=== PATIENT | male | born 1965 | race Caucasian/White ===

== ENCOUNTER 2023-11-13 14:31 | Emergency (ER) | payer OTHER ==
[~2023-11-13] VITALS: Ht 175.3 cm; Wt 94.8 kg
[2023-11-13 14:31] VITALS: BP 110/76; PULSE 92; RESP 18; TEMP 98.1; O2SAT 98
[2023-11-13 15:43] LABS: BASOPHILS # (AUTO) 0.1 K/uL (0.00-0.22); BASOPHILS % (AUTO) 1.3 % (0.0-2.0); EOSINOPHILS # (AUTO) 0.1 K/uL (0-0.4); EOSINOPHILS % (AUTO) 2.8 % (0.0-4.0); HEMATOCRIT 38.8 % (36-52); HEMOGLOBIN 12.7 g/dL (12.0-18.0); LYMPHOCYTES # (AUTO) 1.2 K/uL (2.0-11.5); LYMPHOCYTES % (AUTO) 30.2 % (20.5-51.1); MEAN CORPUSCULAR HEMOGLOBIN 26 pg (27-31); MEAN CORPUSCULAR HGB CONC 33 g/dL (33-37); MEAN CORPUSCULAR VOLUME 77.9 fL (80-94); MONOCYTES # (AUTO) 0.6 K/uL (0.8-1.0); MONOCYTES % (AUTO) 16.7 % (1.7-9.3); NEUTROPHILS # (AUTO) 1.9 K/uL (1.8-7.7); PLATELET COUNT (AUTO) 289 K/uL (140-450); RED BLOOD CELL COUNT(AUTO) 4.98 MIL/uL (4.20-6.10); RED CELL DISTRIBUTION WIDTH 22.5 % (11.6-13.7); WHITE BLOOD COUNT (AUTO) 3.9 K/uL (4.8-10.8)
[2023-11-13 15:52] LABS: ANION GAP 12.5 (8-16); CALCIUM 9.2 mg/dL (8.5-10.1); CARBON DIOXIDE 30.3 mmol/L (21-32); CREATININE 1.5 mg/dL (0.6-1.3); POTASSIUM 3.8 mmol/L (3.5-5.1)
[2023-11-13 16:28] VITALS: O2SAT 98
== END 2023-11-13 18:44 | disposition left against medical advice (07) ==
LOC: MED 14:31
DX: N50.819 Testicular pain, unspecified (principal); R10.9 Unspecified abdominal pain; I11.0 Hypertensive heart disease with heart failure; I50.9 Heart failure, unspecified; Z98.890 Other specified postprocedural states
CPT/HCPCS: 36415; 80048; 81002; 83690; 85025; 99284